=== PATIENT | male | born 1960 | race Caucasian/White ===

== ENCOUNTER 2022-02-25 15:43 | Emergency (ER) | payer OTHER ==
[~2022-02-25 15:43] MED LIST: ASPIRIN325 MG PO; LIPITOR40 MG PO; METFORMIN HCL500 MG PO; PLAVIX75 MG PO; PRINIVIL20 MG PO; PROTONIX20 MG PO; ZOLOFT50 MG PO; ZYRTEC10 M3 PO
[2022-02-25] MEDS ORDERED: CEPHALEXIN500 MG PO (17:52)
== END 2022-02-25 18:20 | disposition home or self-care (01) ==
LOC: FER 15:43
DX: S51.011A Laceration without foreign body of right elbow, initial encounter (principal); S00.03XA Contusion of scalp, initial encounter; S20.412A Abrasion of left back wall of thorax, initial encounter; S20.411A Abrasion of right back wall of thorax, initial encounter; I10 Essential (primary) hypertension; E11.9 Type 2 diabetes mellitus without complications; E78.5 Hyperlipidemia, unspecified; K21.9 Gastro-esophageal reflux disease without esophagitis; Z79.84 Long term (current) use of oral hypoglycemic drugs; Z79.899 Other long term (current) drug therapy; W18.30XA Fall on same level, unspecified, initial encounter; Y92.830 Public park as the place of occurrence of the external cause
CPT/HCPCS: 70450; 72125; 73080; J7030